=== PATIENT | female | born 1975 | race Asian ===

== ENCOUNTER 2022-10-11 12:38 | Emergency (ER) | payer OTHER ==
[~2022-10-11] VITALS: Ht 158.8 cm; Wt 74.6 kg
--- NOTE | 2022-10-11 13:10 | NUR ---
COVID, FLU SWABS DONE.
[2022-10-11 13:16] VITALS: BP 116/77
--- NOTE | 2022-10-11 13:19 | NUR ---
TENT 1
[2022-10-11] MEDS ORDERED: TAM75 PO (14:45)
[2022-10-11] MEDS ORDERED: PROM473S5 PO (15:21)
--- NOTE | 2022-10-11 15:33 | NUR ---
Patient discharged with v/s stable. Written and verbal after care instructions given and explained. Patient alert, oriented and verbalized understanding of instructions. Ambulatory with steady gait. All questions addressed prior to discharge. ID band removed. Patient advised to follow up with PMD. Rx of PROMETHAZINE AND TAMIFLU given. Patient educated on indication of medication including possible reaction and side effects. Opportunity to ask questions provided and answered.
== END 2022-10-11 15:33 | disposition home or self-care (01) ==
LOC: MED 12:38
DX: U07.1 COVID-19 (principal); J10.1 Influenza due to other identified influenza virus with other respiratory manifestations; Z79.899 Other long term (current) drug therapy
CPT/HCPCS: 99283